=== PATIENT | male | born 2000 | race Caucasian/White ===

== ENCOUNTER 2020-09-06 14:15 | Outpatient (REF) | payer OTHER, SELFPAY ==
[2020-09-09 13:28] LABS: SARS-COV-2 PCR UMBRL Not Detected
== END 2020-09-06 14:16 | disposition home or self-care (01) ==
LOC: HO.EMPCOV 14:15
PROVIDERS: Visit Provider Internal Medicine
DX: Z20.822 Contact with and (suspected) exposure to COVID-19 (principal)
CPT/HCPCS: 36415; C9803; U0003

== ENCOUNTER 2023-12-27 08:31 | Outpatient (AMB) | payer OTHER, SELFPAY ==
--- NOTE | 2023-12-27 08:32 | A.OFFPC_ITS ---
Vital Signs 12/27/23 08:42 Height 6 ft 10 in Weight 246 lb 2 oz BMI 25.7 BP 116/86 Blood Pressure Location Rt brachial Position Sitting Respiration 12 Pulse 96 Pulse Source Pulse Oximeter Temp 98 F Temp Source Oral Pulse Oximetry (%) 98 Oxygen Delivery Method Room Air Intake Visit Reasons: Establish [facility] Intake Note: New patient visit. 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 Last seen for routine care in pediatrics. For the past 8 months has had intermittent episodes of painless bright red rectal bleeding. Generally happening with bowel movements. No large passage of blood. No history of abnormal weight loss or abdominal pain. 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 1. Little interest or pleasure in doing things: not at all 2. Feeling down, depressed, or hopeless: not at all 3. Trouble falling or staying asleep, or sleeping too much: more than half the days 4. Feeling tired or having little energy: not at all 5. Poor appetite or overeating: not at all 6. Feeling bad about yourself - or that you are a failure or have let yourself or your family down: not at all 7. Trouble concentrating on things, such as reading the newspaper or watching television: not at all 8. Moving or speaking so slowly that other people could have noticed. Or the opposite - being so fidgety or restless that you have been moving around a lot more than usual: not at all 9. Thoughts that you would be better off or of hurting yourself in some way: not at all Total score: 2 Depression Screening Interpretation: Negative (neg) Depression Screening Done: Yes 20210 - PHQ-9 Billing: Yes Source: Developed by Drs. Mukund Bustillo, Bridget Olvera, Johnathan Laird and colleagues, with an educational mary grace from [employer]. Thrive Questionnaire Date Thrive assessed: 12/27/23 I am a: Patient What is your living situation today?: I have a steady place to live Within the past 12 months, did the food you bought not last and you didn't have the money to get more?: Never true Within the past 12 months, did you worry whether your food would run out before you got money to buy more?: Never true Do you have trouble paying for medicines?: No Do you have trouble getting transportation to medical appointments?: No Do you have trouble paying your heating and electricity bill?: No Do you have trouble taking care of your child, family member or friend?: No Do you have trouble with day-to-day activities such as bathing, preparing meals, shopping, managing finances, etc.?: No Are you currently unemployed and looking for a job?: No Are you interested in more education?: No Please select the resources that you would like help with: None Currently or been in a relationship where the following occur: no concerns reported THRIVE Score: 0 AUDIT C Alcohol Use Questionnaire (AUDIT-C) 1. How often do you have a drink containing alcohol?: 2-3 times a week 2. How many drinks containing alcohol do you have on a typical day when you are drinking?: 3 or 4 3. How often do you have six or more drinks on one occasion?: Weekly Total Score: 7 DAIANA-7 AMB Questionnaire DAIANA-7 Date DAIANA - 7 assessed: 12/27/23 Feeling nervous, anxious, or on edge: 0 = Not at all Not being able to stop or control worryin = Not at all Worrying too much about different things: 0 = Not at all Trouble relaxin = Not at all Being so restless that it is hard to sit still: 0 = Not at all Becoming easily annoyed or irritable: 0 = Not at all Feeling afraid as if something awful might happen: 0 = Not at all Total DAIANA-7 score (0-4 normal; 5-9 mild; 10-14 moderate; 15-21 severe): 0 Source: Developed by Drs. Mukund Bustillo, Bridget Olvera, Johnathan Laird and colleagues, with an educational mary grace from [employer]. DAIANA-7 Assessment Billing DAIANA-7 Assessment Tool: DAIANA-7 Assessment 16496 ACT Questionnaire In the past 4 weeks, how much of the time did your asthma keep you from getting as much done at work, school or at home?: None of the time During the past 4 weeks, how often have you had shortness of breath?: Not at all During the past 4 weeks, how often did your asthma symptoms wake you up at night or earlier than usual in the morning?: Not at all During the past 4 weeks, how often have you had to use your rescue inhaler or nebulizer medication?: Not at all How would you rate your asthma control during the past 4 weeks?: Completely controlled ACT Interpretation: Negative Score: 25 Review of Systems Const Details: ROS CONSTITUTIONAL: Denies weight loss, fever and chills. HEENT: Denies changes in vision and hearing. RESPIRATORY: Denies SOB and cough. CV: Denies palpitations and CP GI: Denies abdominal pain, nausea, vomiting and diarrhea. : Denies dysuria and urinary frequency. MSK: Denies new myalgia and joint pain. SKIN: Denies rash and pruritus. NEUROLOGICAL: Denies headache PSYCHIATRIC: Denies recent changes in mood. Physical exam (Primary Care) Vital Signs: Last Vital Signs Temp 98 F 12/27/23 08:42 Pulse 96 12/27/23 08:42 Resp 12 12/27/23 08:42 BP 116/86 12/27/23 08:42 Pulse Ox 98 12/27/23 08:42 Oxygen Delivery Method Room Air 12/27/23 08:42 PHYSICAL EXAM: GENERAL: Alert and oriented x 3. NAD EYES: EOMI. Anicteric. HENT: Moist mucous membranes. No scleral icterus. No cervical lymphadenopathy. LUNGS: Clear to auscultation bilaterally. CARDIOVASCULAR: Regular rate and rhythm. No murmur. No JVD. ABDOMEN: Soft, non-tender +bs EXTREMITIES: No edema. Non-tender. SKIN: No rashes or lesions. Warm. NEUROLOGIC: No focal neurological deficits. CN II-XII grossly intact PSYCHIATRIC: Cooperative. Appropriate mood and affect BMI result Body Mass Index 25.7 Tobacco/Smoking Status: Tobacco use Status Tobacco use date assessed 12/27/23 12/27/23 08:45 Patient Tobacco Use Status Former Tobacco user 12/27/23 08:59 e-Cigarette/Vaping Use Never Used 12/27/23 08:59 PHQ-9: PHQ-9 Score PHQ-9: Total score 2 12/27/23 10:04 Depression Screening Interpretation: Negative (neg) Thrive Assessment: Date of Thrive Assessment Date Thrive assessed 12/27/23 12/27/23 09:01 Currently or been in a relationship where the following occur: no concerns reported Assessment and Plan Assessment & Plan (1) Encounter to establish care: Comment: 23 year old male to establish care. Past medical, surgical, social and family history reviewed Code(s): Z76.89 - Persons encountering health services in other specified circumstances (2) Rectal bleeding: Comment: painless intermittent brbpr-referral to general surgery Code(s): K62.5 - Hemorrhage of anus and rectum Orders: Orders Complete Blood Count Auto Diff 12/27/23 K62.5 - Hemorrhage of anus and rectum, Z13.0 - Encounter for screening for diseases of the blood and blood-forming organs and certain disorders involving the immune mechanism, Z13.220 - Encounter for screening for lipoid disorders, Z13.228 - Encounter for screening for other metabolic disorders Comprehensive Met. Panel 12/27/23 K62.5 - Hemorrhage of anus and rectum, Z13.0 - Encounter for screening for diseases of the blood and blood-forming organs and certain disorders involving the immune mechanism, Z13.220 - Encounter for screening for lipoid disorders, Z13.228 - Encounter for screening for other metabolic disorders Lipid Panel 12/27/23 K62.5 - Hemorrhage of anus and rectum, Z13.0 - Encounter for screening for diseases of the blood and blood-forming organs and certain disorders involving the immune mechanism, Z13.220 - Encounter for screening for lipoid disorders, Z13.228 - Encounter for screening for other metabolic disorders Referrals General Surgery Referral K62.5 - Hemorrhage of anus and rectum Coding Level of Care Code New Pt Level 4 (95704) Complex EM visit Add On G2211 Diagnoses Encounter to establish care Z76.89 Rectal bleeding K62.5 Additional Codes DAIANA-7 Assessment Billing - DAIANA-7 Assessment Tool: DAIANA-7 Assessment 87189 ([id number])
[2023-12-27 08:42] VITALS: BP 116/86; PULSE 96; RESP 12; TEMP 36.6; O2SAT 98; BMI 25.7
== END 2023-12-27 09:13 | disposition home or self-care (01) ==
PROVIDERS: PCP Internal Medicine; Visit Provider Internal Medicine
DX: K62.5 Hemorrhage of anus and rectum (principal)
CPT/HCPCS: 99204; G2211

== ENCOUNTER 2023-12-27 09:20 | Outpatient (REF) | payer OTHER, SELFPAY ==
[2023-12-27 11:28] LABS: MANUAL DIFF FLAG NO
[2023-12-27 11:32] LABS: Basophils Absolute Auto 0.1 X10*3/uL (0.0-0.2); Basophils Percent Auto 1.7 % (0-2); Eosinophils Absolute Auto 0.3 X10*3/uL (0.0-0.4); Eosinophils Percent Auto 4.7 % (0-4); Hematocrit 46.5 % (42.0-52.0); Hemoglobin 16.5 g/dl (14.0-18.0); Imm Gran Abs Auto 0.03 X10*3/uL (0.00-0.03); Imm Gran Pct Auto 0.5 % (0.0-0.4); Lymphocytes Absolute Auto 2.8 X10*3/uL (1.2-4.9); Lymphocytes Percent Auto 42.4 % (20-40); Mean Corpuscular HGB Conc 35.5 g/dl (31.0-36.0); Mean Corpuscular Hemoglobin 31.3 pg (27.0-33.0); Mean Corpuscular Volume 88.2 fL (80.0-98.0); Mean Platelet Volume 9.7 fL (9.4-12.4); Monocytes Absolute Auto 0.8 X10*3/uL (0.1-1.2); Monocytes Percent Auto 12.4 % (2-11); Neutrophils Absolute Auto 2.5 x10*3/uL (2.0-8.3); Neutrophils Percent Auto 38.3 % (45-73); Platelet Count 335 X10*3/uL (160-400); Red Blood Count 5.27 X10*6/uL (4.60-5.80); Red Cell Distribution Width 12.1 % (11.0-16.0); White Blood Count 6.6 X10*3/uL (4.8-10.8)
[2023-12-27 12:20] LABS: Alanine Aminotransferase 94 U/L (0-40); Albumin Level 4.4 g/dL (3.5-5.0); Alkaline Phosphatase 56 U/L (39-117); Anion Gap 13 (12-20); Aspartate Amino Transferase 47 U/L (5-37); Bilirubin Total 0.5 mg/dL (0.0-1.0); Blood Urea Nitrogen 8 mg/dL (9-16); Calcium 9.7 mg/dL (8.4-10.2); Carbon Dioxide 27 mmol/L (22-29); Chloride 104 mmol/L (96-108); Cholesterol 174 mg/dL (<200); Estimated Glomerular Filt Rate > 60; Glucose Random 89 mg/dL (60-115); HDL Cholesterol 71 mg/dL (>40); LDL Cholesterol Calculated 89 mg/dL (<100); Potassium 4.2 mmol/L (3.3-5.1); Sodium 140 mmol/L (135-145); Total Protein 7.5 g/dL (6.5-8.0); Triglycerides 71 mg/dL (<150)
== END 2023-12-27 09:21 | disposition home or self-care (01) ==
LOC: HO.WFDLDS 09:20
PROVIDERS: Visit Provider Internal Medicine
DX: K62.5 Hemorrhage of anus and rectum (principal); Z13.228 Encounter for screening for other metabolic disorders; Z13.220 Encounter for screening for lipoid disorders; Z13.0 Encounter for screening for diseases of the blood and blood-forming organs and certain disorders involving the immune mechanism
CPT/HCPCS: 36415; 80053; 80061; 85025

== ENCOUNTER 2024-01-10 13:41 | Outpatient (AMB) | payer OTHER, SELFPAY ==
--- NOTE | 2024-01-10 13:48 | MHC.OFFVIS ---
Vital Signs 01/10/24 13:49 Height 6 ft 10 in Weight 246 lb 1.985 oz BMI 25.7 Intake Visit Reasons: Hemorrhage of anus and rectum Intake Note: This patient presents for Hemorrhage of anus and rectum assessment. Patient c/o; Onset 8 months, reports rectal bleeding x2 every other month. Hook And Eye Attacher Required: No Accompanied by: Self / Same As Patient Allergies No Known Allergies Allergy (Verified 01/10/24 13:55) Medication List - Last Reconciled 01/10/24 by Mike Gibson MD No Known Home Meds HPI HPI Hemorrhage of anus and rectum: Details: 23-year-old male referred for bleeding per rectum. He says that for the past year now, he would notice small amounts of blood on the toilet bowl after a bowel movement. He says it would happen about once a month for about 2-3 days. He denies any pain with passage stool. He denies a problem with constipation. He denies abdominal pain or any other GI complaints. He actually does not have any other medical issues. 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 Current occupational exposures/hazards: No Cognitive needs: No Hearing needs: No Vision needs: No Review of Systems Const Denies chills and Denies fever(s) Card Denies chest pain, Denies dyspnea and Denies dyspnea on exertion Resp Denies cough, Denies dyspnea and Denies dyspnea on exertion GI Reports hematochezia and Denies change in bowel habits Denies hematuria and Denies difficulty urinating Musc Denies back pain and Denies limited range of motion Neuro Denies focal weakness and Denies convulsions Psych Denies depression and Denies mood swings Physical Exam Vital Signs: BMI result Body Mass Index 25.7 Const General: comfortable and no acute distress Orientation/consciousness: patient oriented x3 Neck Neck: Yes no lymphadenopathy Resp Auscultation: clear to auscultation bilaterally Cardio Rhythm: regular rhythm GI Other: Rectal exam does not show any external hemorrhoids Palpation (GI): Soft to palpation, nontender and no guarding Neuro General: patient oriented x3 Office Procedures Anoscopy He was in serena-knife position. The anoscope was gently inserted. A full examination of the anal canal was done. He did have some external hemorrhoids although non bulky. There was no bleeding. He had hypertonic sphincter but there was no fissure. There was no tenderness or induration on digital exam [id number] Assessment & Plan Assessment & Plan (1) Bleeding hemorrhoids: Code(s): K64.9 - Unspecified hemorrhoids Category: Medical Plan: He does have internal hemorrhoids on anoscopy. Although non bulky, these appeared to be the source of outlet bleeding He also had hypertonicity of his sphincters but he says that this was because he was very anxious. I do not see any anal fissure I explained to him the option of hemorrhoidectomy and we can do this was rubber banding. However, we need him to be relaxed for this so we may need to do this with an exam under anesth in the operating room. He says that this happens only once every 2 months so he would like to hold off on hemorrhoidectomy for now. I did tell him that if he noticed any significant changes including heavier bleeding, or pain, he should come back to the office to be re-evaluated Coding Level of Care Code New Pt Level 3 (35738) Diagnoses Bleeding hemorrhoids K64.9 CPT Codes Details - CPT: 82653-[id number] ([id number])
[2024-01-10 13:49] VITALS: BMI 25.7
== END 2024-01-10 14:18 | disposition home or self-care (01) ==
PROVIDERS: PCP Internal Medicine; Referring Provider Internal Medicine; Visit Provider Surgery
DX: K64.9 Unspecified hemorrhoids (principal)
CPT/HCPCS: 46600; 99203

== ENCOUNTER → 2024-01-10 13:41 | Outpatient (BNVA) | payer OTHER, SELFPAY | PROVIDERS: PCP Internal Medicine; Referring Provider Internal Medicine; Visit Provider Surgery | DX: K64.4 Residual hemorrhoidal skin tags (principal) | CPT/HCPCS: 46600 ==

== ENCOUNTER 2024-03-28 07:26 | Day surgery (SDC) | payer OTHER, SELFPAY ==
[2024-03-26 14:13] VITALS: BMI 25.7
[2024-03-28] VITALS (7 sets, daily range): BP systolic 130–139; BP diastolic 91–99; PULSE 90–97; RESP 14–18; TEMP 36.5–36.9; O2SAT 94–99; BMI 25.6
[2024-03-28] MEDS: Albuterol Sulfate (0.083%) 2.5 MG/3 ML VIAL.NEB INHALE (08:26)
--- NOTE | 2024-03-28 08:34 | HO.ANESPROP2 ---
HPI - Anesthesia Eval Consult details Narrative: for hemorrhoidectomy PMFSH Active Problems Active Problems: All Active Problems Elevated LFTs (Acute) Abnormal CBC (Acute) Screening, deficiency anemia, iron (Acute) Screening for hyperlipidemia (Acute) Screening for metabolic disorder (Acute) Rectal bleeding (Acute) Encounter to establish care (Acute) Bleeding hemorrhoids (Acute) Past Medical History Medical History (Updated 03/28/24 @ 07:59 by Wendie Duckworth RN) Autism Asthma Bleeding hemorrhoids Family History Family History Father Alcoholism Mother Skin cancer Other Substance abuse Family history of problems with anesthesia: No Surgical History Surgical History (Updated 03/28/24 @ 07:55 by Wendie Duckworth RN) History of dental surgery No pertinent past surgical history History of Problems with Anesthesia: No Social History Social History Housing: House Patient Tobacco Use Status: Never used Tobacco Cigarettes Per Day: 1 Years Smoked: 2 e-Cigarette/Vaping Use: Never Used Second Hand Smoke Exposure: Yes Use of substances other than those prescribed or required for medical reasons: Yes Substance Use Type: Marijuana Substance Use Frequency: Weekly Are you DNR?: No Advance Directives: No Advance Directives Information Provided: Yes service: No Current occupational status: employed 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 Current occupational exposures/hazards: No Cognitive needs: No Hearing needs: No Vision needs: No Meds Allergies Allergy/AdvReac Type Severity Reaction Status Date / Time No Known Allergies Allergy Verified 03/28/24 07:58 Home Medications ?Medication ?Instructions ?Recorded ?Confirmed ?Last Taken ?Type No Known Home Meds 12/27/23 03/28/24 Unknown History Exam Height,Weight and Vital Signs: Height 6 ft 10 in Weight 111.13 kg Last Vital Signs Temp 98.5 F 03/28/24 08:00 Pulse 90 03/28/24 08:29 Resp 14 03/28/24 08:29 BP 136/93 H 03/28/24 08:00 Pulse Ox 95 03/28/24 08:00 O2 Del Method Room Air 03/28/24 08:00 Airway Mallampati Class: I TM Dist: >3cm Neck ROM: Full Loose/Missing/Broken Teeth: No Heart: ok Lungs: ok Assessment and Plan Assessment Anesthesia Assessment: Anesthesia Plan Discussed and Chart Reviewed Final Anesthetic Review Family History of Problems with Anesthesia: No History of Problems with Anesthesia: No NPO: Yes ASA Class: II Final Preanesthetic Review: No Changes in Pt Med Stat, Meds/Allgs Chart Reviewed, Consent Obtained/Reviewed and Anes Risks/Benef Reviewed Patient Risk: Intermediate Procedure Risk: Intermediate Anesthetic Plan Anesthetic Plan: GA and Agree w/ Assess. and Plan Disposition: Standard PACU
--- NOTE | 2024-03-28 08:46 | MHC.SHP ---
Pre-Procedural Eval Section A - 24 Hr Update-Section A only Date of Service: 03/28/24 Section B - Complete if H&P > 30 days Chief Complaint: Unspecified hemorrhoids Details of Present Illness: Passage of bright blood per rectum hemorrhoids Allergies: Allergies Allergy/AdvReac Type Severity Reaction Status Date / Time No Known Allergies Allergy Verified 03/28/24 07:58 Review of Systems Sugical H&P ROS: Negative: Constitution, Cardiovascular, Respiratory, Neurological, Psychiatric, Hem-Onc, Allergic/Immunologic, Gastrointestinal, Genitourinary, Musculoskeletal, Integumentary, Endocrine and Eyes/Ears/Nose/Throat Exam Surgical H&P Exam: Normal: HEENT, Normal: Heart, Normal: Lungs, Normal: Extremities, Normal: Abdomen, Normal: Skin and Normal: Neurological Plan Diagnosis/Plan: Unchanged I have reviewed the history and physical and performed a pertinent physical examination on my patient. No changes have occurred unless specified. Time Spent With Patient Time: Total time managing care of this patient today ____ minutes.
[2024-03-28] MEDS: Lactated Ringers 1,000 ML 80 ML IVCONT (09:00)
--- NOTE | 2024-03-28 10:29 | P.OP_ITS ---
Operative Note Operative Note Date of Service: 03/28/24 Narrative: Preop Diagnosis: Bleeding hemorrhoids Postop diagnosis: Bleeding hemorrhoids, internal external Procedure: EUA, hemorrhoidectomy x2 columns Surgeon: Mike Gibson MD The patient is a 23-year-old male who has had periodic passage of bright blood per rectum. It did appear that he had hemorrhoids and this was the likely source of his outlet bleeding. He wanted to proceed with hemorrhoidectomy. He understood the technique of the planned procedure as well as the risks, benefits, and alternatives He was brought to the operating room and placed in prone serena-knife position under general anesthesia via laryngeal mask airway. Buttocks were retracted with wide tape laterally. The perianal area was prepped and draped in the usual sterile fashion. A surgical time-out was done. The patient received Cefotan 2 g IV preoperatively Examination of the perianal area revealed external hemorrhoids on both the left and right side. I infiltrated the perianal area with lidocaine 1%. I inserted the Justin Gupta retractor. I examined the anal canal circumferentially. Again, there was note of prominent columns of internal external hemorrhoids on both the left and right side. There were no other lesions seen. There was no fissure, ulceration or any induration. I applied a Rosario grasper at the larger column on the right to retract this out of the field. I made a [id number]-[id number] stitch at the pedicle with a chromic 3-0. I made an incision around this hemorrhoidal column to the perianal skin with a blade 15. I excised this hemorrhoidal column above the plane of the sphincters along this incision with scissors. I closed the incision with a running chromic 3-0 stitch with additional hemostatic sutures placed I repeated the procedure with the hemorrhoidal column on the left. I retracted this hemorrhoidal column with a Rosario grasper. I made a [id number]-wv-mzqxp stitch at the pedicle. I made an incision around this hemorrhoidal column to the perianal skin and excise this above the plane of the sphincters using scissors. I closed this incision with a running chromic 3-0 stitch. Additional eskcyi-ck-kdjpj chromic sutures were placed with chromic 3-0 Once hemostasis was confirmed, I proceeded to infiltrate the perianal area with Marcaine 0.5% for postop analgesia. The procedure was then completed The patient tolerated the procedure well. There were no immediate compli cations. Initial and final counts of sponges and instruments were correct. Estimated blood loss was about 50 cc The patient was extubated without difficulty and transferred to the recovery with stable vital signs.
[2024-03-28] MEDS: Acetaminophen 325 MG TABLET 650 MG PO (10:45)
[2024-03-28] MEDS: oxyCODONE HCl Immed Release 5 MG TABLET PO (10:50)
== END 2024-03-28 11:35 | disposition home or self-care (01) ==
PROVIDERS: PCP Internal Medicine; Visit Provider Surgery
PROC: (CPT 46260; principal; 2024-03-28 09:40)
DX: K64.8 Other hemorrhoids (principal); K64.4 Residual hemorrhoidal skin tags; J45.909 Unspecified asthma, uncomplicated; F84.0 Autistic disorder; Z87.891 Personal history of nicotine dependence
CPT/HCPCS: 46260; 88304; 94640; J1885; J2250; J2405; J2704; J2795; J3010

== ENCOUNTER → 2024-03-28 07:26 | Outpatient (BNV) | payer OTHER, SELFPAY | PROVIDERS: PCP Internal Medicine; Visit Provider Surgery | DX: K64.8 Other hemorrhoids (principal) | CPT/HCPCS: 46260 ==

== ENCOUNTER 2025-01-01 15:07 | Outpatient (AMB) | payer OTHER, SELFPAY ==
--- NOTE | 2025-01-01 15:10 | MHC.PC.OV ---
Vital Signs 01/01/25 15:14 01/01/25 15:36 01/01/25 15:42 Height 6 ft 10 in Weight 266 lb 4 oz BMI 27.8 BP 122/96 H 120/88 Blood Pressure Location Lt brachial Position Sitting Pulse 106 H 92 Pulse Source Pulse Oximeter Temp 96.6 F L Temp Source Temporal Artery Scan Pulse Oximetry (%) 96 Oxygen Delivery Method Room Air Intake Visit Reasons: CPE Intake Note: Stephen presents in the office today for his annual physical. Allergies No Known Allergies Allergy (Verified 01/01/25 15:13) Tobacco use date assessed: 01/01/25 Dental Screening Dental Screen Date: 01/01/25 Did you have a dental visit in the last 12 months?: No Did you have a dental problem in the last 6 months where you did not have access to dental care?: No Was dental information given to patient?: Patient has dentist HPI HPI Comments History of Present Illness Details This is a 24-year-old male who presents for a physical exam. Patient endorses bloating, frequent stools, appetite loss and vomiting once a week. Stools are sometimes formed, sometimes constipation and sometimes diarrhea. Patient says he has a healthy diet. He drinks 5-6 beers 3 nights per week. He smokes marijuana and does edibles nightly. Denies weight loss, blood in stools, abdominal pain. Endorses acid reflux sometimes. Denies family history of cancer or gastrointestinal disorders. Does not drink caffeine. He eats a lot of fruits and vegetables. He has asthma. He has had symptoms with exercise, and lately he feels like he can not get a full breath in when he takes a deep breath or coughs when he is talking. He does not have an inhaler. No wheezing, chest pain, shortness of breath, dizziness or syncope. Does not smoke cigarettes. Lives with his mother. His father from alcoholism last June. He has some difficult moments but denies feeling depressed or needing additional support or behavioral health referral. The patient's blood pressure and heart rate were initially elevated, but as it turns out he was feeling sick and vomited in the bathroom. After that he felt much better, and his vitals improved. ROS: Constitutional: No unexplained weight loss, fever, chills, fatigue or night sweats. Eyes: No vision changes, blurry vision, double vision, eye pain, eye redness, eye discharge. ENT: No hearing loss, sneezing, congestion, runny nose or sore throat. Respiratory: No sputum production, wheezing, dyspnea with exertion, hemoptysis. Cardiovascular: No chest pain, chest pressure or chest discomfort. No palpitations or pedal edema. Gastrointestinal: See HPI Genitourinary: No dysuria, hematuria, urinary frequency. Neurologic: No headache, dizziness, syncope, unilateral weakness, ataxia, numbness or tingling in the extremities. Musculoskeletal: No muscle pain, back pain, joint pain or swelling. Hematologic/Lymphatics: No bleeding or bruising. No painful lymph nodes. Skin: No rash or itching. Endocrine: No cold or heat intolerance. No polyuria or polydipsia. Psychiatric: See HPI and PHQ-9. Physical exam: Constitutional: Alert, in no distress. Head: Normocephalic. Eyes: Pupils are equal, round and reactive to light. Extraocular muscles intact. Ear, Nose and Throat: Canals clear. TMs normal. Normal nasal mucosa. No nasal discharge. No oral lesions. Neck: Supple, Full range of motion. No lymphadenopathy. No palpable thyroid masses. Respiratory: Clear to auscultation. Cardiovascular: S1 S2 regular. No murmurs. Gastrointestinal: Abdomen soft, non-tender, non-distended. Normal bowel sounds. No palpable masses. Genitourinary: Patient declined. Neurologic: No focal neurological deficits. Symmetric patellar reflexes. Moves all extremities spontaneously. Sensation intact bilaterally. Skin: No rashes or lesions. Musculoskeletal: No gross deformities. Normal range of motion. Extremities: Warm and well perfused. No clubbing, cyanosis or edema. Intact peripheral pulses bilaterally. Psychiatric: Normal mood and affect [facility] Medical History (Updated 01/02/25 @ 15:44 by PIETER Arguelles) Routine physical examination Vomiting Acid reflux Alternating constipation and diarrhea Bloating Autism Asthma Bleeding hemorrhoids Surgical History (Updated 04/08/24 @ 10:50 by LEANA Kenyon) History of hemorrhoidectomy (~03/28/24) History of dental surgery No pertinent past surgical history Family History Father Alcoholism Mother Skin cancer Other Substance abuse Social History (Updated 01/01/25 @ 15:14 by Jessica Verde MA) Housing: House Alcohol intake: current Alcohol intake frequency: a few times a week Patient Tobacco Use Status: Former Tobacco user Tobacco use type: Cigarette Cigarette Packs Per Day: 1 Cigarettes Per Day: 1 Years Smoked: 2 e-Cigarette/Vaping Use: Never Used Second Hand Smoke Exposure: Yes Substance Use Type: Marijuana service: No Current occupational status: employed 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 1. Little interest or pleasure in doing things: not at all 2. Feeling down, depressed, or hopeless: not at all 3. Trouble falling or staying asleep, or sleeping too much: more than half the days 4. Feeling tired or having little energy: more than half the days 5. Poor appetite or overeating: more than half the days 6. Feeling bad about yourself - or that you are a failure or have let yourself or your family down: not at all 7. Trouble concentrating on things, such as reading the newspaper or watching television: not at all 8. Moving or speaking so slowly that other people could have noticed. Or the opposite - being so fidgety or restless that you have been moving around a lot more than usual: not at all 9. Thoughts that you would be better off or of hurting yourself in some way: not at all Total score: 6 Depression Screening Interpretation: Negative Depression Screening Done: Yes 24482 - PHQ-9 Billing: Patient declined-do not bill Source: Developed by Drs. Mukund Bustillo, Bridget Olvera, Johnathan Laird and colleagues, with an educational mary grace from [employer]. Thrive Questionnaire Date Thrive assessed: 01/01/25 I am a: Patient What is your living situation today?: I have a steady place to live Within the past 12 months, did the food you bought not last and you didn't have the money to get more?: Never true Within the past 12 months, did you worry whether your food would run out before you got money to buy more?: Never true Do you have trouble paying for medicines?: No Do you have trouble getting transportation to medical appointments?: No Do you have trouble paying your heating and electricity bill?: No Do you have trouble taking care of your child, family member or friend?: No Do you have trouble with day-to-day activities such as bathing, preparing meals, shopping, managing finances, etc.?: No Are you currently unemployed and looking for a job?: No Are you interested in more education?: No Please select the resources that you would like help with: None Currently or been in a relationship where the following occur: No concerns reported THRIVE Score: 0 AUDIT C Alcohol Use Questionnaire (AUDIT-C) 1. How often do you have a drink containing alcohol?: 2-3 times a week 2. How many drinks containing alcohol do you have on a typical day when you are drinking?: 3 or 4 3. How often do you have six or more drinks on one occasion?: Weekly Total Score: 7 Score Reviewed/Action Taken: Yes DAIANA-7 AMB Questionnaire DAIANA-7 Date DAIANA - 7 assessed: 01/01/25 Feeling nervous, anxious, or on edge: 0 = Not at all Not being able to stop or control worryin = Not at all Worrying too much about different things: 0 = Not at all Trouble relaxin = Not at all Being so restless that it is hard to sit still: 0 = Not at all Becoming easily annoyed or irritable: 0 = Not at all Feeling afraid as if something awful might happen: 0 = Not at all Total DAIANA-7 score (0-4 normal; 5-9 mild; 10-14 moderate; 15-21 severe): 0 Source: Developed by Drs. Mukund Bustillo, Bridget Olvera, Johnathan Laird and colleagues, with an educational mary grace from [employer]. DAIANA-7 Assessment Billing DAIANA-7 Assessment Tool: DAIANA-7 Assessment 00838 Physical exam (Primary Care) Vital Signs: Last Vital Signs Temp 96.6 F L 01/01/25 15:14 Pulse 92 01/01/25 15:36 BP 120/88 01/01/25 15:42 Pulse Ox 96 01/01/25 15:14 Oxygen Delivery Method Room Air 01/01/25 15:14 BMI result Body Mass Index 27.8 Tobacco/Smoking Status: Tobacco use Status Tobacco use date assessed 01/01/25 01/01/25 15:18 Patient Tobacco Use Status Former Tobacco user 01/01/25 15:18 Tobacco use type Cigarette 01/01/25 15:18 e-Cigarette/Vaping Use Never Used 01/01/25 15:14 PHQ-9: PHQ-9 Score PHQ-9: Total score 6 01/01/25 17:39 Depression Screening Interpretation: Negative Thrive Assessment: Date of Thrive Assessment Date Thrive assessed 01/01/25 01/01/25 15:12 Currently or been in a relationship where the following occur: No concerns reported Coding Level of Care Code Est Pt Level 3 (89112) Est Pt Prev Care 18-39y(96072) Diagnoses Mild intermittent asthma without complication J45.20 Asthma severity: mild Asthma persistence: intermittent Asthma complication type: uncomplicated Gastroesophageal reflux disease without esophagitis K21.9 Esophagitis presence: without esophagitis Nausea and vomiting, unspecified vomiting type R11.2 Vomiting type: unspecified Nausea presence: with nausea Alternating constipation and diarrhea R19.8 Bloating R14.0 Routine physical examination Z00.00 Additional Codes DAIANA-7 Assessment Billing - DAIANA-7 Assessment Tool: DAIANA-7 Assessment 82620 ([id number]) Assessment & Plan Assessment & Plan (1) Asthma: Code(s): J45.909 - Unspecified asthma, uncomplicated Category: Medical Qualifiers: Asthma severity: mild Asthma persistence: intermittent Asthma complication type: uncomplicated Qualified Code(s): J45.20 - Mild intermittent asthma, uncomplicated (2) Acid reflux: Code(s): K21.9 - Gastro-esophageal reflux disease without esophagitis Category: Medical Qualifiers: Esophagitis presence: without esophagitis Qualified Code(s): K21.9 - Gastro-esophageal reflux disease without esophagitis (3) Vomiting: Code(s): R11.10 - Vomiting, unspecified Category: Medical Qualifiers: Vomiting type: unspecified Nausea presence: with nausea Qualified Code(s): R11.2 - Nausea with vomiting, unspecified (4) Alternating constipation and diarrhea: Code(s): R19.8 - Other specified symptoms and signs involving the digestive system and abdomen Category: Medical (5) Bloating: Code(s): R14.0 - Abdominal distension (gaseous) Category: Medical (6) Routine physical examination: Code(s): Z00.00 - Encounter for general adult medical examination without abnormal findings Category: Medical Plan Patient is seen today for a routine physical. As part of this visit we reviewed the following issues, which are considered and essential part of preventative health in this age group: - Testicular cancer screening, which includes self exam teaching - Blood pressure screening annually - Cholesterol screening - Nutritional and exercise counseling - Counseling of injury prevention including fire prevention, smoke alarms and seat belt usage - Screening for depression - Prevention of and/or testing for infectious diseases - Education about skin cancer - Recommendations about immunizations - Recommendation of an eye exam - Screening for substance abuse Patient will have lab evaluation for GI symptoms, Gastroenterology referral and abdominal ultrasound. We will consider trial of PPI once H pylori testing is done. I also recommended he try a dairy free diet for the next 4 weeks and decrease marijuana and alcohol use is I think they are likely contributing to his symptoms. He understands. Prescribed albuterol 2 puffs every 4 hours as needed. Monitor symptom burden. Complete chest x-ray and pulmonary function test. Follow up in 6 weeks. Orders: Orders TSH reflex Free T4 01/01/25 K21.9 - Gastro-esophageal reflux disease without esophagitis, R14.0 - Abdominal distension (gaseous), R19.8 - Other specified symptoms and signs involving the digestive system and abdomen Lipase 01/01/25 K21.9 - Gastro-esophageal reflux disease without esophagitis, R14.0 - Abdominal distension (gaseous), R19.8 - Other specified symptoms and signs involving the digestive system and abdomen Amylase 01/01/25 K21.9 - Gastro-esophageal reflux disease without esophagitis, R14.0 - Abdominal distension (gaseous), R19.8 - Other specified symptoms and signs involving the digestive system and abdomen Endomysial IgA rflx Titer 01/01/25 K21.9 - Gastro-esophageal reflux disease without esophagitis, R14.0 - Abdominal distension (gaseous), R19.8 - Other specified symptoms and signs involving the digestive system and abdomen XR chest 2V 01/01/25 J45.909 - Unspecified asthma, uncomplicated PFT pulmonary function test 01/01/25 J45.909 - Unspecified asthma, uncomplicated Comprehensive Met. Panel 01/01/25 K21.9 - Gastro-esophageal reflux disease without esophagitis, R14.0 - Abdominal distension (gaseous), R19.8 - Other specified symptoms and signs involving the digestive system and abdomen Complete Blood Count Auto Diff 01/01/25 K21.9 - Gastro-esophageal reflux disease without esophagitis, R14.0 - Abdominal distension (gaseous), R19.8 - Other specified symptoms and signs involving the digestive system and abdomen H pylori Ag Stool 01/01/25 K21.9 - Gastro-esophageal reflux disease without esophagitis, R14.0 - Abdominal distension (gaseous), R19.8 - Other specified symptoms and signs involving the digestive system and abdomen Immunoglobulin A 01/01/25 K21.9 - Gastro-esophageal reflux disease without esophagitis, R14.0 - Abdominal distension (gaseous), R19.8 - Other specified symptoms and signs involving the digestive system and abdomen Transglutaminase Ab IgG 01/01/25 K21.9 - Gastro-esophageal reflux disease without esophagitis, R14.0 - Abdominal distension (gaseous), R19.8 - Other specified symptoms and signs involving the digestive system and abdomen US abdomen complete 01/01/25 K21.9 - Gastro-esophageal reflux disease without esophagitis, R11.10 - Vomiting, unspecified, R14.0 - Abdominal distension (gaseous) Referrals Gastroenterology Referral K21.9 - Gastro-esophageal reflux disease without esophagitis, R11.10 - Vomiting, unspecified, R14.0 - Abdominal distension (gaseous), R19.8 - Other specified symptoms and signs involving the digestive system and abdomen Medications: New albuterol sulfate 90 mcg/actuation 2 inhalations inhalation .every 4 hours PRN 8.5 grams 0RF shortness of breath or wheezing 30 days Patient Instructions: Try dairy free diet Please have labs and chest x-ray completed. Decrease MJ and alcohol. We will call to schedule a pulmonary function test, ultrasound of the abdomen and a gastroenterology appointment.
[2025-01-01 15:14] VITALS: BP 122/96; PULSE 106; TEMP 35.9; O2SAT 96; BMI 27.8
[2025-01-01 15:36] VITALS: PULSE 92
--- OUTSIDE RECORDS SUMMARY | 2025-01-01 15:41 | XMS_ITS | Encounter Summary ---
Author Organization [facility] Address [address] [place] [address] Phone Care Team Providers Care Poacher Wringer Operator Name Role Phone Felicia Loco MD Primary Care Provider Encounter Details Date Type Department Care Team (Late st Contact Info) Description 08/09/2011 Documentation EM Family Medicine [address] [place] [address] Family Medicine, Physician [address] [place], [place] [phone] Social History Tobacco Use Types Packs/Day Years Used Date Smoking Tobacco: Never Assessed Sex and Gender Information Value Date Recorded Sex Assigned at Not on file Legal Sex Male 5:06 PM EDT Gender Identity Not on file Sexual Orientation Not on file documented as of this encounter Plan of Treatment Not on file documented as of this encounter Visit Diagnoses Not on filedocumented in this encounter Care Teams Poacher Wringer Operator Relationship Specialty Start Date End Date Felicia Loco MD [address] [place] [address] [place] [address] PCP - General Pediatrics 06/24/19 12/04/22 documented as of this encounter
--- OUTSIDE RECORDS SUMMARY | 2025-01-01 15:41 | XMS_ITS | Encounter Summary ---
Author Organization [facility] Address [address] [place] [address] Phone Care Team Providers Care Carpet Inspector Name Role Phone Felicia Loco MD Primary Care Provider [phone] Encounter Details Date Type Department Care Team (Late st Contact Info) Description 09/07/2011 Documentation EM Family Medicine [address] [place] [address] Family Medicine, Physician [address] [place], [place] [phone] Social History Tobacco Use Types Packs/Day Years [...] on filedocumented in this encounter Care Teams Carpet Inspector Relationship Specialty Start Date End Date Felicia Loco MD [address] [place] [address] [place] [address] PCP - General Pediatrics 06/24/19 12/04/22 documented as of this encounter
--- OUTSIDE RECORDS SUMMARY | 2025-01-01 15:41 | XMS_ITS | Encounter Summary ---
Author Organization [facility] Address [address] [place] [address] Phone Care Team Providers Care Associate Professor Of Education Name Role Phone Felicia Loco MD Primary Care Provider [phone] Encounter Details Date Type Department Care Team (Late st Contact Info) Description 08/17/2011 Documentation EM Family Medicine [address] [place] [address] Family Medicine, Physician [address] [place], [place] [phone] Social History Tobacco Use Types Packs/Day Years [...] on filedocumented in this encounter Care Teams Associate Professor Of Education Relationship Specialty Start Date End Date Felicia Loco MD [address] [place] [address] [place] [address] PCP - General Pediatrics 06/24/19 12/04/22 documented as of this encounter
--- OUTSIDE RECORDS SUMMARY | 2025-01-01 15:41 | XMS_ITS | Encounter Summary ---
Author Organization [facility] Address [address] [place] [address] Phone Care Team Providers Care Tacking Machine Operator Name Role Phone Felicia Loco MD Primary Care Provider [phone] Encounter Details Date Type Department Care Team (Late st Contact Info) Description 04/10/2017 Documentation EM Family Medicine [address] [place] [address] Family Medicine, Physician [address] [place], [place] [phone] Social History Tobacco Use Types Packs/Day Years Used Date Smoking Tobacco: Never Comments:Never smoker Sex and Gender Information Value Date Recorded Sex Assigned at Not on file Legal Sex Male 5:06 PM EDT Gender Identity Not on file Sexual Orientation Not on file documented as of this encounter Plan of Treatment Not on file documented as of this encounter Visit Diagnoses Not on filedocumented in this encounter Care Teams Tacking Machine Operator Relationship Specialty Start Date End Date Felicia Loco MD [address] [place] [address] [place]A [place] [address] PCP - General Pediatrics 06/24/19 12/04/22 documented as of this encounter
--- OUTSIDE RECORDS SUMMARY | 2025-01-01 15:41 | XMS_ITS | Encounter Summary ---
Author Organization [facility] Address [address] [place] [address] Phone Care Team Providers Care Travel Agency Manager Name Role Phone Felicia Loco MD Primary Care Provider [phone] Encounter Details Date Type Department Care Team (Latest Contact Info) Description 03/07/2020 ED [facility] Social History Tobacco Use Types Packs/Day Years Used Date Smoking Tobacco: Never Smokeless Tobacco: Never Comments:Never smoker Alcohol Use Standard Drinks/Week Comments Yes 0 (1 standard drink = 0.6 oz pure alcohol) drinks once or twice a month with friends. Hunger/Food Answer Date Recorded No 04/17/2019 Stable Housing Answer Date Recorded No 08/30/2019 Transportation Concerns Answer Date Rec orded No 04/17/2019 Hazards in Home Answer Date Recorded No 04/17/2019 Financing Utilities Answer Date Recorde d No 04/17/2019 Safety at Home Answer Date Recorded No 04/17/2019 Outside Support Answer Date Recorded No 04/17/2019 Understanding Health Concerns Answer Da te Recorded No 04/17/2019 Financing Health Concerns Answer Date R ecorded No 04/17/2019 Missing School or Work Answer Date Herman rded No 04/17/2019 Sex and Gender Information Value Date Recorded Sex Assigned at Not on file Legal Sex Male 5:06 PM EDT Gender Identity Not on file Sexual Orientation Not on file documented as of this encounter ED Notes * [facility], [facility] - 03/07/2020 9:12 AM EDT EDPDOC [facility] EDM *LIVE* ED Physician Documentation Summary Report Patient: LEXX VELÁSQUEZ 19/M Service Date: 03/07/20 Account: [id number] : 2000 Service Time: 911 PCP: MAXI MR#: [id number] COVID-19 Visit/Exposure Info Visit Information Visit Type: In-person, PPE utilized Chief Complaint: Generic Triage Time Seen by MD: 09:23 Source: patient Exam Limitations: no limitations Patient Exposure Patient concern for COVID-19?: No Exposure to COVID-19?: Yes Where did exposure occur?: Work Has patient been tested?: No If prev test, what was result?: N/A Other person symptomatic?: No Other person COVID-19 tested?: Yes Recent illness?: No Recent Hospitalization?: No History of Present Illness HPI Patient is an otherwise healthy 19-year-old male presents to the emergency room requesting SARS-CoV-2 testing as a result I have a positive exposure which happened 10 days ago. Patient requires testing as a result of a work requirement. He is asymptomatic. No risk factors. Review of Systems (Structured) Constitutional: Denies: Chills, Diaphoresis, Fever, Loss of Appetite, Malaise, Weakness Eyes: Denies: Discharge, Redness, Other ENT: Denies: Change in Smell, Change in Taste, Nasal Congestion, Rhinorrhea, Sore Throat, Other Cardiovascular: Denies: Chest Pain, Palpitations, Syncope, Other Respiratory: Denies: Cough, Shortness of Breath, Wheezing, Other Gastrointestinal: Denies: Abdominal Pain, Diarrhea, Nausea, Vomitting, Other Neurological: Denies: Headache, Other Exam (Structured) Constitutional: Reports: Calm, Cooperative, Well-Appearing Skin: Reports: Dry; Denies: Diaphoresis, Rash Eyes: Reports: Clear; Denies: Discharge ENT: Denies: Nasal Congestion, Nasal Discharge, Pharyngeal Erythema Respiratory: Reports: Clear, Non-Labored; Denies: Accessory Muscle Use Cardiovascular: Reports: Regular Rate, Regular Rhythm Abdominal: Reports: Non-Tender, Soft Neurological: Reports: Alert, No Focal Deficits, Oriented COVID-19 PMHx Medical History Allergies Reviewed: Yes Past Medical History: No Significant PMH Social History Smoking Status: Never Smoker Alcohol Use: Denies Recreational Drug Use: Denies COVID-19 Course Differential Diagnosis/Testing Differential Diagnosis: Other (Ewen testing) Diagnostics Testing Done: COVID-19 Lab Results COVID-19 Laboratory Tests Test 03/07/20 09:22 SARS-CoV-2 RNA (RT-PCR) Pending Plan Plan: Self-Isolation, Discharge Departure Diagnosis: Ewen COVID-19 testing Disposition: HOME, SELF-CARE Condition: Good Patient Instructions: Novel Coronavirus (ED) Referrals: ARGENTINA LOCO MD (PCP) MARA DIAZ PA-C Mar 07, 2020 09:58 ED Physician: MARA DIAZ PA-C Documentation Date/Time: 03/07/2058 Cosigner: SAWYER LYNN DO Cosigner: <Electronically signed by MARA DIAZ PA-C> 03/07/202129 <Electronically signed by SAWYER LYNN DO> 03/08/20 0959 documented in this encounter Plan of Treatment Not on file documented as of this encounter Visit Diagnoses Not on filedocumented in this encounter Care Teams Travel Agency Manager Relationship Specialty Start Date End Date Felicia Loco MD [address] [place] [address] [place]JENDRA [place] [address] PCP - General Pediatrics 06/24/19 12/04/22 documented as of this encounter
--- OUTSIDE RECORDS SUMMARY | 2025-01-01 15:41 | XMS_ITS | Encounter Summary ---
Author Organization [facility] Address [address] [place] [address] Phone Care Team Providers Care Stunt Person Name Role Phone Felicia Loco MD Primary Care Provider [phone] Encounter Details Date Type Department Care Team (Late st Contact Info) Description 04/12/2017 Conversion Encounter [facility] [place] [address] [place], [place] [id number] Social History Tobacco Use Types Packs/Day Years [...] on filedocumented in this encounter Care Teams Stunt Person Relationship Specialty Start Date End Date Felicia Loco MD [address] [place] [address] PCP - General Pediatrics 06/24/19 12/04/22 documented as of this encounter
--- OUTSIDE RECORDS SUMMARY | 2025-01-01 15:41 | XMS_ITS | Encounter Summary ---
Author Organization [facility] Address [address] [place] [address] Phone Care Team Providers Care Copyist Name Role Phone Felicia Loco MD Primary Care Provider [phone] Encounter Details Date Type Department Care Team (Late st Contact Info) Description 08/23/2011 Documentation EM Family Medicine [address] [place] [address] Family Medicine, Physician [address] [place], [place] [phone] Social History Tobacco Use Types Packs/Day Years [...] on filedocumented in this encounter Care Teams Copyist Relationship Specialty Start Date End Date Felicia Loco MD [address] [place] [address] [place] [address] PCP - General Pediatrics 06/24/19 12/04/22 documented as of this encounter
[2025-01-01 15:42] VITALS: BP 120/88
--- OUTSIDE RECORDS SUMMARY | 2025-01-01 15:42 | XMS_ITS | Encounter Summary ---
Author Organization [facility] Address [address] [place] [address] Phone Care Team Providers Care Rubber Trimmer Name Role Phone Felicia Loco MD Primary Care Provider Encounter Details Date Type Department Care Team (Late st Contact Info) Description 07/20/2014 Documentation EM Family Medicine [address] [place] [address] Family Medicine, Physician [address] [place], [place] [phone] Social History Tobacco Use Types Packs/Day Years [...] on filedocumented in this encounter Care Teams Rubber Trimmer Relationship Specialty Start Date End Date Felicia Loco MD [address] [place] [address] [place] [address] PCP - General Pediatrics 06/24/19 12/04/22 documented as of this encounter
--- OUTSIDE RECORDS SUMMARY | 2025-01-01 15:42 | XMS_ITS | Clinical Summary ---
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 Immunizations Immunization Administration Dates Next Due DTaP 5 01/09/2005, 1,05/24/2000,03/29,01/20/2000 HPV, Quadrivalent 12/08/2014,06/12/2014,04/10/20 14 Hep A, ped/adol 12/08/2014,04/10/2014 Hep B, ped/adol 09/14/2000,01/20/2000,1999 Hib (PRP-T) 03/19/2001, 0,03/29/2000,01/19 IPV 01/09/2005, 1,03/29/2000,01/19 Influenza, injectable, quadrivalent 12/15/2015,1 09/13/2013 Influenza, injectable, quadr ivalent, preservative free 10/21/2020,06/09/2019,04/24/2016 Influenza, injectable, trivalent 06/02/2009 MMR 01/09/2005,11/16/2000 Meningococcal B Trumenba 10/21/2020,04/17/2019 Meningococcal Conj (Menactra) MCV4P 04/09/2017,0 12/26/2010 Pneumococcal Conjugate 03/19/2001,2000,05/24/2000,03/29 Tdap 10/21/2020,12/26/2010 Varicella 11/16/2000 Family History Medical History Relation Name Comments No Known Problems Brother Zeferino No Known Problems Father No Known Problems Half-Sister No Known Problems Mother Jose Relation Name Status Comments Brother Zeferino Alive Brother: Alive and well Father Alive Father: Alive a nd well Half-Sister Alive Half sister (P) : Alive and well Mother Jose Alive Mother: Alive a nd well Other Family history of Allergies, Family history of Eczema Social History Tobacco Use Types Packs/Day Years Used Date Smoking Tobacco: Never Smokeless Tobacco: Never Comments:Never smoker Alcohol Use Standard Drinks/Week Comments Yes 0 (1 standard drink = 0.6 oz pure alcohol) drinks once or twice a month with friends. Hunger/Food Answer Date Recorded In the last 12 months, did y ou or your family ever eat less than you felt you should because there wasn't enough money for food? No 10/21/2020 Stable Housing Answer Date Recorded Are you worried that in the next 2 months you may not have stable housing? No 10/21/2020 Transportation Concerns Answer Date Rec orded In the last 12 months, have you or your family ever had to go without healthcare because you didn't have a way to get there? No 10/21/2020 Hazards in Home Answer Date Recorded Think about the place you li ve. Do you have problems with any of the following? Pests (mice or roaches), mold, no/not working smoke detectors, water leaks, no window guards. No 2020 Financing Utilities Answer Date Recorde d In the last 12 months, has t he electric, gas, oil, or water company threatened to shut off your services in your home? No 10/21/2020 Safety at Home Answer Date Recorded Are you or your family worried about feeling saf e in your home? No 10/21/2020 Outside Support Answer Date Recorded Do you feel that you need mo re support from other people or programs to help you care for yourself or your family? No 10/21/2020 Understanding Health Concerns Answer Da te Recorded Do you need help understandi ng your or your child's healthcare needs (diagnosis, medications, plan, etc.)? No 10/21/2020 Financing Health Concerns Answer Date R ecorded In the last 12 months, was t here a time when your child needed to see a doctor or get medications or supplies but could not because of cost? No 10/21/2020 Missing School or Work Answer Date Herman rded Did you or your child miss s chool or work because of a health problem that could have been avoided? No 10/21/2020 Sex and Gender Information Value Date Recorded Sex Assigned at Not on file Legal Sex Male 5:06 PM EDT Gender Identity Not on file Sexual Orientation Not on file Last Filed Vital Signs Vital Sign Reading Time Taken Comments Blood Pressure 114/79 10/21/2020 9:14 AM EST Pulse 88 10/21/2020 9:14 AM EST Temperature 36.2 ??C (97.1 ??F) 10/21/2020 9:14 AM ES T Respiratory Rate 20 06/09/2019 10:23 AM EDT Oxygen Saturation 98% 09/09/2010 12:00 AM EST Inhaled Oxygen Concentration - - Weight 84.4 kg (186 lb) 10/21/2020 9:14 AM EST Height 208.3 cm (6' 10 ) 10/21/2020 9:14 AM EST Body Mass Index 19.45 10/21/2020 9:14 AM EST Plan of Treatment Health Maintenance Due Date Last Done Comments Influenza Vaccines (#1) 2024 10/21/19, 06/09/2019, 04/24/2016, Additional history exists COVID-19 Vaccine (2023-2 5 season) 2024 09/02/2020, 08/12/2020 DTaP,Tdap,and Td Vaccines (8 - Td or Tdap) 10/21/2030 10/21/2020, 12/26/2010, 01/09/2005, Additional history exists Hepatitis B Vaccines Completed 09/14/2000, 01/20/2000, 1999 HIB Vaccines Completed 03/19/2001, 04/28, 03/29/2000, Additional history exists Pneumococcal Vaccine Completed 03/19/2001, 09/14/2000, 05/24/2000, Additional history exists IPV Vaccines Completed 01/09/2005, 02/25, 03/29/2000, Additional history exists MMR Vaccines Completed 01/09/2005, 11/16/2000 HPV Vaccines Completed 12/08/2014, 05/27, 04/10/2014 Hepatitis A Vaccines Completed 12/08/2014, 04/10/20 14 Meningococcal Vaccine Completed 04/09/2017, 011 Men B Vaccine Completed 10/21/2020, 04/17/2019 Insurance [facility] [employer]
--- OUTSIDE RECORDS SUMMARY | 2025-01-01 15:42 | XMS_ITS | Clinical Summary ---
Author Organization [facility] Address [address] [place] [address] Care Team Providers Care Supply Chain Program Manager Name Role Phone Unavailable Primary Care Provider Unavailabl e Social History Tobacco Use Types Packs/Day Years Used Date Smoking Tobacco: Never Assessed Sex and Gender Information Value Date Recorded Sex Assigned at Not on file Legal Sex Male 8:57 PM EST Gender Identity Not on file Sexual Orientation Not on file Plan of Treatment Health Maintenance Due Date Last Done Comments HPV Vaccines (1 - Male 3-dos e series) 11/14/2014 DTaP,Tdap,and Td Vaccines (1 - Tdap) 11/14/2018 Hepatitis B Vaccines (1 of 3 - 19+ 3-dose series) 11/14/2018 COVID-19 Vaccine ( - 2023-2 5 season) 2024 Influenza Vaccine (Season Ended) 2025 HIB Vaccines Aged Out No longer eligi ble based on patient's age to complete this topic Hepatitis A Vaccines Aged Out No long er eligible based on patient's age to complete this topic IPV Vaccines Aged Out No longer eligi ble based on patient's age to complete this topic MMR Vaccines Aged Out No longer eligi ble based on patient's age to complete this topic Meningococcal ACWY Vaccine Aged Out N o longer eligible based on patient's age to complete this topic Meningococcal B Vaccine Aged Out No l onger eligible based on patient's age to complete this topic Pneumococcal Vaccine: Pediat rics (0 to 5 Years) and At-Risk Patients (6 to 64 Years) Aged Out No longer eligible b ased on patient's age to complete this topic RSV Immunization Patients Un willie 20 months Aged Out No longer eligible b ased on patient's age to complete this topic Varicella Vaccines Aged Out No longer eligible based on patient's age to complete this topic
== END 2025-01-01 15:51 | disposition home or self-care (01) ==
LOC: HO.HMCFM 15:08
PROVIDERS: PCP Internal Medicine; Visit Provider Physician Assistant Medical
DX: Z00.00 Encounter for general adult medical examination without abnormal findings (principal); J45.20 Mild intermittent asthma, uncomplicated; K21.9 Gastro-esophageal reflux disease without esophagitis; R11.2 Nausea with vomiting, unspecified; R19.8 Other specified symptoms and signs involving the digestive system and abdomen; R14.0 Abdominal distension (gaseous)

== ENCOUNTER → 2025-01-01 15:07 | Outpatient (BNVA) | payer OTHER, SELFPAY | PROVIDERS: PCP Internal Medicine; Visit Provider Physician Assistant Medical | DX: Z00.00 Encounter for general adult medical examination without abnormal findings (principal); J45.20 Mild intermittent asthma, uncomplicated; K21.9 Gastro-esophageal reflux disease without esophagitis; R11.2 Nausea with vomiting, unspecified; R19.8 Other specified symptoms and signs involving the digestive system and abdomen; R14.0 Abdominal distension (gaseous) | CPT/HCPCS: 96127 ==

== ENCOUNTER 2025-02-11 14:58 | Outpatient (REF) | payer OTHER, SELFPAY ==
--- NOTE | ~2025-02-11 | XR_ITS ---
CLINICAL HISTORY: R06.02 - Shortness of breath 2 views soft tissue neck Comparison: None provided Findings No acute fractures or dislocation. Epiglottis unremarkable. Questioned fluid level in the region of the piriform sinuses and mild soft tissue edema. No radiopaque foreign body. IMPRESSION: Questioned fluid level in the region of the piriform sinuses and mild soft tissue edema. Soft tissue neck CT should be considered. This document has been electronically signed by: Casa Zacarias MD on 02/12/2025 10:12:11
--- OUTSIDE RECORDS SUMMARY | 2025-02-11 17:15 | XMS_ITS | Encounter Summary ---
Author Organization [facility] Address [address] [place] [address] Phone Care Team Providers Care Convention Services Manager Name Role Phone Felicia Loco MD Primary Care Provider [phone] Encounter Details Date Type Department Care Team (Latest Contact Info) Description 03/07/2020 ED [facility] Social History Tobacco Use Types Packs/Day Years [...] of this encounter ED Notes * DOCUMENTS, [facility] - 03/07/2020 9:12 AM EDT EDPDOC [facility] EDM *LIVE* ED Physician Documentation Summary Report Patient: LEXX VELÁSQUEZ 19/M Service Date: 03/07/20 Account: [id number] : 2000 Service Time: 911 PCP: MAXI MR#: [id number] COVID-19 Visit/Exposure Info Visit Information Visit Type: [...] COVID-19 Course Differential Diagnosis/Testing Differential Diagnosis: Other ([place] testing) Diagnostics Testing Done: COVID-19 Lab Results COVID-19 Laboratory Tests Test 03/07/20 09:22 SARS-CoV-2 RNA (RT-PCR) Pending Plan Plan: Self-Isolation, Discharge Departure Diagnosis: [place] COVID-19 testing Disposition: HOME, SELF-CARE Condition: Good [...] on filedocumented in this encounter Care Teams Convention Services Manager Relationship Specialty Start Date End Date Felicia Loco MD [address] [place] [address] RAJENDRA Marmolejo [address] PCP - General Pediatrics 06/24/19 12/04/22 documented as of this encounter
== END 2025-02-11 14:59 | disposition home or self-care (01) ==
LOC: HO.XRAY 14:58
PROVIDERS: PCP Internal Medicine; Visit Provider Internal Medicine
DX: R06.02 Shortness of breath (principal)
CPT/HCPCS: 70360

== ENCOUNTER → 2025-02-11 15:02 | Outpatient (BNV) | payer OTHER, SELFPAY | PROVIDERS: PCP Internal Medicine; Visit Provider Radiology Vascular & Interventional Radiology | DX: R06.02 Shortness of breath (principal) | CPT/HCPCS: 70360 ==

== ENCOUNTER 2025-04-06 09:08 | Outpatient (REF) | payer OTHER, SELFPAY ==
--- NOTE | ~2025-04-06 | US_ITS ---
CLINICAL HISTORY: R11.10 - Vomiting, unspecified US abdomen complete Comparison: None provided Findings: The visualized pancreas head is normal. The visualized aorta and inferior vena cava are normal caliber. The right hepatic lobe measures 20.8 cm in length and elongated. Normal in echogenicity, no discrete lesion is visualized in the imaged liver. No intrahepatic bile duct dilatation. The common duct is 3 mm in diameter. The gallbladder is normal. Negative sonographic Lucio sign. The main portal vein is patent with antegrade flow. The right kidney is normal, 12.4 cm in length. The left kidney is enlarged, 13.9 cm in length, otherwise normal. The spleen is mildly enlarged, 13.2 cm in length, no focal lesion. No free fluid in the abdomen. Impression: 1. Hepatomegaly versus Reidel lobe of the liver. 2. Mildly enlarged left kidney and spleen, please correlate with body habitus. This document has been electronically signed by: Jaquelin Johns MD on 04/06/2025 11:13:12
--- OUTSIDE RECORDS SUMMARY | 2025-04-06 09:35 | XMS_ITS | Clinical Summary ---
Author Organization [facility] it[facility] Address [address] [place] [address] Care Team Providers Care Data Developer Name Role Phone Unavailable Primary Care Provider [...] Vaccine ( - 2023-2 5 season) 2024 Depression Screening 08/27/2024 Influenza Vaccine (#1) 2025 HIB Vaccines Aged Out No longer [...] 5 Years) and At-Risk Patients (6 to 49 Years) Aged Out No longer eligible b ased on patient's age to complete this topic RSV Immunization Patients Un willie 20 months Aged Out No longer eligible b ased on patient's age to complete this topic Varicella Vaccines Aged Out No longer eligible based on patient's age to complete this topic
--- OUTSIDE RECORDS SUMMARY | 2025-04-06 09:35 | XMS_ITS | Encounter Summary ---
Author Organization [facility] Address [address] [place] [address] Phone Care Team Providers Care Bottle Filler Name Role Phone Felicia Loco MD Primary Care Provider [phone] Encounter Details Date Type Department Care Team (Latest Contact Info) Description 03/07/[address] [facility] Social History Tobacco Use Types Packs/Day Years [...] of this encounter ED Notes * DOCUMENTS, [facility] - 03/07/2020 9:[address] [facility] EDM *LIVE* ED Physician Documentation Summary Report Patient: LEXX VELÁSQUEZ 19/M Service Date: 03/07/20 Account: [id number] : 2000 Service Time: 911 PCP: MAXI MR#: [id number] COVID-19 Visit/Exposure Info Visit Information Visit Type: [...] COVID-19 Course Differential Diagnosis/Testing Differential Diagnosis: Other ([place] testing) Diagnostics Testing Done: COVID-19 Lab Results COVID-19 Laboratory Tests Test 03/07/20 09:22 SARS-CoV-2 RNA (RT-PCR) Pending Plan Plan: Self-Isolation, Discharge Departure Diagnosis: [place] COVID-19 testing Disposition: HOME, SELF-CARE Condition: Good [...] on filedocumented in this encounter Care Teams Bottle Filler Relationship Specialty Start Date End Date Felicia Loco MD [address] [place] [address] RAJENDRA Marmolejo [address] PCP - General Pediatrics 06/24/19 12/04/22 documented as of this encounter
== END 2025-04-06 09:09 | disposition home or self-care (01) ==
LOC: HO.HMGCX 09:08
PROVIDERS: PCP Internal Medicine; Visit Provider Physician Assistant Medical
DX: R14.0 Abdominal distension (gaseous) (principal); R11.10 Vomiting, unspecified; K21.9 Gastro-esophageal reflux disease without esophagitis
CPT/HCPCS: 76700

== ENCOUNTER → 2025-04-06 09:12 | Outpatient (BNV) | payer OTHER, SELFPAY | PROVIDERS: PCP Internal Medicine; Visit Provider Radiology Diagnostic Radiology | DX: N28.81 Hypertrophy of kidney (principal) | CPT/HCPCS: 76700 ==

== ENCOUNTER 2025-08-19 10:18 | Outpatient (REF) | payer OTHER, SELFPAY ==
[2025-08-19 16:10] LABS: MANUAL DIFF FLAG NO
[2025-08-19 16:15] LABS: Hematocrit 44.1 % (42.0-52.0); Hemoglobin 15.3 g/dl (14.0-18.0); Imm Gran Abs Auto 0.01 X10*3/uL (0.00-0.03); Imm Gran Pct Auto 0.2 % (0.0-0.4); Lymphocytes Absolute Auto 2.4 X10*3/uL (1.2-4.9); Mean Corpuscular HGB Conc 34.7 g/dl (31.0-36.0); Mean Corpuscular Hemoglobin 29.2 pg (27.0-33.0); Mean Corpuscular Volume 84.2 fL (80.0-98.0); NRBC Abs Auto 0.000 X10*3/uL (0.0-0.012); NRBC Pct Auto 0.0 /100WBC (0.0-0.2); Platelet Count 349 X10*3/uL (160-400); Red Blood Count 5.24 X10*6/uL (4.60-5.80); White Blood Count 5.7 X10*3/uL (4.8-10.8)
[2025-08-19 16:43] LABS: Alanine Aminotransferase 41 U/L (0-40); Albumin Level 4.7 g/dL (3.5-5.0); Alkaline Phosphatase 94 U/L (39-117); Amylase 40 U/L (28-100); Anion Gap 12 (12-20); Aspartate Amino Transferase 28 U/L (5-37); Blood Urea Nitrogen 8 mg/dL (9-16); Calcium 9.5 mg/dL (8.4-10.2); Carbon Dioxide 25 mmol/L (22-29); Chloride 108 mmol/L (96-108); Estimated Glomerular Filt Rate > 60; Lipase 29 U/L (8-78); Potassium 4.3 mmol/L (3.3-5.1); Sodium 141 mmol/L (135-145); Total Protein 7.4 g/dL (6.5-8.0)
[2025-08-21 13:03] LABS: Immunoglobulin A 240 mg/dL (47-310)
[2025-08-24 09:49] LABS: Transglutaminase Ab IgG <1.0 U/mL
== END 2025-08-19 10:19 | disposition home or self-care (01) ==
LOC: HO.WFDLDS 10:18
PROVIDERS: Physician Assistant Medical; PCP Internal Medicine; Visit Provider Internal Medicine
DX: R14.0 Abdominal distension (gaseous) (principal); R19.8 Other specified symptoms and signs involving the digestive system and abdomen; K21.9 Gastro-esophageal reflux disease without esophagitis; R79.89 Other specified abnormal findings of blood chemistry; R06.02 Shortness of breath; J45.20 Mild intermittent asthma, uncomplicated; R09.81 Nasal congestion
CPT/HCPCS: 36415; 80053; 82150; 82248; 82784; 83690; 84443; 85025; 86231; 86364; 96160

== ENCOUNTER 2025-08-19 10:18 | Outpatient (AMB) | payer OTHER, SELFPAY ==
--- OUTSIDE RECORDS SUMMARY | 2025-08-19 10:27 | XMS_ITS | Encounter Summary ---
Author Organization [facility] Address [address] [place] [address] Phone Care Team Providers Care Heel Seat Laster Name Role Phone Felicia Loco MD Primary Care Provider [phone] Encounter Details Date Type Department Care Team (Late st Contact Info) Description 08/23/2011 Documentation EM Family Medicine [address] [place] [address] Family Medicine, Physician [address] [place], [place] [phone] Social History Tobacco Use Types Packs/Day Years [...] on filedocumented in this encounter Care Teams Heel Seat Laster Relationship Specialty Start Date End Date Felicia Loco MD [address] [place] [address] [place] [address] PCP - General Pediatrics 06/24/19 12/04/22 documented as of this encounter
--- OUTSIDE RECORDS SUMMARY | 2025-08-19 10:27 | XMS_ITS | Clinical Summary ---
Author Organization [facility] ity Address [address] [place] [address] Care Team Providers Care Machine Sole Leveler Name Role Phone Unavailable Primary Care Provider [...] of 3 - 19+ 3-dose series) 11/14/2018 Depression Screening 08/27/2024 COVID-19 Vaccine (1 - 2024-2 6 season) 2025 Influenza Vaccine (#1) 2025 RSV Immunization Adult Patie nts (1 - 1-dose 75+ series) 11/14/2074 HIB Vaccines Aged Out No longer eligi [...]
--- OUTSIDE RECORDS SUMMARY | 2025-08-19 10:27 | XMS_ITS | Clinical Summary ---
Author Organization [facility] Address [address] [place] [address] Phone Care Team Providers Care College Teacher Name Role Phone Unavailable Primary Care Provider [...] 88 10/21/2020 9:14 AM EST Temperature 36.2 C (97.1 F) 10/21/2020 9:14 AM EST Respiratory Rate 20 06/09/2019 10:23 AM EDT Oxygen Saturation 98% 09/09/2010 12:00 AM EST Inhaled Oxygen Concentration - - Weight 84.4 kg (186 lb) 10/21/2020 9:14 AM EST Height 208.3 cm (6' 10 ) 10/21/2020 9:14 AM EST Body Mass Index 19.45 10/21/2020 9:14 AM EST Plan of Treatment Health Maintenance Due Date Last Done Comments Influenza Vaccines (#1) 2025 10/21/19, 06/09/2019, 04/24/2016, Additional history exists COVID-19 Vaccine (3 2024-2 6 season) 2025 09/02/2020, 08/12/2020 DTaP,Tdap,and Td Vaccines (8 - [...] B Vaccine Completed 10/21/2020, 04/17/2019 Insurance [facility] [place] [address]
--- OUTSIDE RECORDS SUMMARY | 2025-08-19 10:27 | XMS_ITS | Encounter Summary ---
Author Organization [facility] Address [address] [place] [address] Phone Care Team Providers Care Warning Analyst Name Role Phone Felicia Loco MD Primary Care Provider [phone] Encounter Details Date Type Department Care Team (Late st Contact Info) Description 07/20/2014 Documentation EM Family Medicine [address] [place] [address] Family Medicine, Physician [address] [place], [place] [phone] Social History Tobacco Use Types Packs/Day Years [...] on filedocumented in this encounter Care Teams Warning Analyst Relationship Specialty Start Date End Date Felicia Loco MD [address] [place] [address] [place] [address] PCP - General Pediatrics 06/24/19 12/04/22 documented as of this encounter
--- OUTSIDE RECORDS SUMMARY | 2025-08-19 10:27 | XMS_ITS | Encounter Summary ---
Author Organization [facility] Address [address] [place] [address] Phone Care Team Providers Care Retail Presentation Specialist Name Role Phone Felicia Loco MD Primary Care Provider [phone] Encounter Details Date Type Department Care Team (Late st Contact Info) Description 08/17/2011 Documentation EM Family Medicine [address] [place] [address] Family Medicine, Physician [address] [place], [place] [phone] Social History Tobacco Use Types Packs/Day Years [...] on filedocumented in this encounter Care Teams Retail Presentation Specialist Relationship Specialty Start Date End Date Felicia Loco MD [address] [place] [address] [place] [address] PCP - General Pediatrics 06/24/19 12/04/22 documented as of this encounter
--- OUTSIDE RECORDS SUMMARY | 2025-08-19 10:27 | XMS_ITS | Encounter Summary ---
Author Organization [facility] Address [address] [place] [address] Phone Care Team Providers Care Riffler Tender Name Role Phone Felicia Loco MD Primary Care Provider [phone] Encounter Details Date Type Department Care Team (Late st Contact Info) Description 08/09/2011 Documentation EM Family Medicine [address] [place] [address] Family Medicine, Physician [address] [place], [place] [phone] Social History Tobacco Use Types Packs/Day Years [...] on filedocumented in this encounter Care Teams Riffler Tender Relationship Specialty Start Date End Date Felicia Loco MD [address] [place] [address] [place] [address] PCP - General Pediatrics 06/24/19 12/04/22 documented as of this encounter
--- OUTSIDE RECORDS SUMMARY | 2025-08-19 10:27 | XMS_ITS | Encounter Summary ---
Author Organization [facility] Address [address] [place] [address] Phone Care Team Providers Care Supervisor Adult Education Name Role Phone Felicia Loco MD Primary Care Provider Encounter Details Date Type Department Care Team (Late st Contact Info) Description 04/10/2017 Documentation EM Family Medicine [address] [place] [address] Family Medicine, Physician [address] [place], [place] [phone] Social History Tobacco Use Types Packs/Day Years [...] on filedocumented in this encounter Care Teams Supervisor Adult Education Relationship Specialty Start Date End Date Felicia Loco MD [address] [place] [address] RAJENDRA Marmolejo [address] PCP - General Pediatrics 06/24/19 12/04/22 documented as of this encounter
--- OUTSIDE RECORDS SUMMARY | 2025-08-19 10:27 | XMS_ITS | Encounter Summary ---
Author Organization [facility] Address [address] [place] [address] Phone Care Team Providers Care Gas Prover Name Role Phone Felicia Loco MD Primary Care Provider Encounter Details Date Type Department Care Team (Late st Contact Info) Description 04/12/2017 Conversion Encounter [facility] [address] [place], [place] [phone] Social History Tobacco Use Types Packs/Day Years [...] on filedocumented in this encounter Care Teams Gas Prover Relationship Specialty Start Date End Date Felicia Loco MD [address] [place] [address] PCP - General Pediatrics 06/24/19 12/04/22 documented as of this encounter
--- OUTSIDE RECORDS SUMMARY | 2025-08-19 10:27 | XMS_ITS | Encounter Summary ---
Author Organization [facility] Address [address] [place] [address] Phone Care Team Providers Care Burlap Roll Coverer Name Role Phone Felicia Loco MD Primary Care Provider [phone] Encounter Details Date Type Department Care Team (Late st Contact Info) Description 09/07/2011 Documentation EM Family Medicine [address] [place] [address] Family Medicine, Physician [address] [place], [place] [phone] Social History Tobacco Use Types Packs/Day Years [...] on filedocumented in this encounter Care Teams Burlap Roll Coverer Relationship Specialty Start Date End Date Felicia Loco MD [address] [place] [address] [place] [address] PCP - General Pediatrics 06/24/19 12/04/22 documented as of this encounter
--- OUTSIDE RECORDS SUMMARY | 2025-08-19 10:27 | XMS_ITS | Encounter Summary ---
Author Organization [facility] Address [address] [place] [address] Phone Care Team Providers Care Automated Weaver Name Role Phone Felicia Loco MD Primary Care Provider [phone] Encounter Details Date Type Department Care Team (Latest Contact Info) Description 03/07/[address] [facility] Social History Tobacco Use Types Packs/Day Years [...] of this encounter ED Notes * DOCUMENTS, [facility] - 03/07/2020 9:[address] [facility] EDM *LIVE* ED Physician Documentation Summary Report Patient: LEXX VELÁSQUEZ 19/M Service Date: 03/07/20 Account: [id number] : 2000 Service Time: 911 PCP: MAXI MR#: [id number] COVID-19 Visit/Exposure Info Visit Information Visit Type: [...] COVID-19 Course Differential Diagnosis/Testing Differential Diagnosis: Other ([place] testing) Diagnostics Testing Done: COVID-19 Lab Results COVID-19 Laboratory Tests Test 03/07/20 09:22 SARS-CoV-2 RNA (RT-PCR) Pending Plan Plan: Self-Isolation, Discharge Departure Diagnosis: [place] COVID-19 testing Disposition: HOME, SELF-CARE Condition: Good [...] on filedocumented in this encounter Care Teams Automated Weaver Relationship Specialty Start Date End Date Felicia Loco MD [address] [place] [address] RAJENDRA Marmolejo [address] PCP - General Pediatrics 06/24/19 12/04/22 documented as of this encounter
--- NOTE | 2025-08-19 10:48 | A.OFFPC_ITS ---
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 He has chronic sinus congestion, fullness and endorses air hunger. Worse at night and when laying down. Denies chest pressure . Intermittent wheezing. He does have a childhood history of asthma. Has not used an inhaler in years despite being prescribed in December. He has xray of the neck MPRESSION:Questioned fluid level in the region of the piriform sinuses and mild soft tissue edema. Soft tissue neck CT should be considered. CT scan was ordered but he did not schedule. Has ENT scheduled for October. GI: bloating, frequent stools, appetite loss and vomiting once a week. Stools are sometimes formed, sometimes constipation and sometimes diarrhea. Patient says he has a healthy diet. He drinks 5-6 beers 3 nights per week. He smokes marijuana and does edibles nightly. Intermittent acid reflux. He was referred to GI but did not follow through Abnormal CBC earlier this year, did not complete repeat. No abnormal weight loss, night sweats, LN ROS see HPI PHYSICAL EXAM: GENERAL: Tall, alert and oriented x 3. NAD EYES: EOMI. Anicteric. HENT: Moist mucous membranes. No scleral icterus. No cervical lymphadenopathy. LUNGS: scattered rhonci, wheeze CARDIOVASCULAR: Regular rate and rhythm. No murmur. No JVD. ABDOMEN: Soft, non-tender +bs EXTREMITIES: No edema. Non-tender. SKIN: No rashes or lesions. Warm. NEUROLOGIC: No focal neurological deficits. CN II-XII grossly intact PSYCHIATRIC: Cooperative. Appropriate mood and affect [facility] Medical History (Updated 06/16/25 @ 06:43 by Ailin Robertson MD) Routine physical examination Vomiting Acid reflux Alternating constipation and diarrhea Bloating Autism Asthma Bleeding hemorrhoids Surgical History History of hemorrhoidectomy (~03/28/24) History of dental surgery No pertinent past surgical history Family History Father Alcoholism Mother Skin cancer Other Substance abuse Social History (Updated 08/19/25 @ 11:06 by Annabel Fu CMA) Housing: House Alcohol intake: former Comment: hasnt drank in 6 months Patient Tobacco Use Status: Former Tobacco user Tobacco use type: Cigarette Cigarette Packs Per Day: 1 Cigarettes Per Day: 1 Years Smoked: 2 e-Cigarette/Vaping Use: Never Used Second Hand Smoke Exposure: Yes Substance Use Type: Marijuana service: No Current occupational status: employed 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 Current occupational exposures/hazards: No Cognitive needs: No Hearing needs: No Vision needs: No Questionnaire Thrive Questionnaire Date Thrive assessed: 01/01/25 I am a: Patient What is your living situation today?: I have a steady place to live Within the past 12 months, did the food you bought not last and you didn't have the money to get more?: Never true Within the past 12 months, did you worry whether your food would run out before you got money to buy more?: Never true Do you have trouble paying for medicines?: No Do you have trouble getting transportation to medical appointments?: No Do you have trouble paying your heating and electricity bill?: No Do you have trouble taking care of your child, family member or friend?: No Do you have trouble with day-to-day activities such as bathing, preparing meals, shopping, managing finances, etc.?: No Are you currently unemployed and looking for a job?: No Are you interested in more education?: No Currently or been in a relationship where the following occur: No concerns reported THRIVE Score: 0 AUDIT C Alcohol Use Questionnaire (AUDIT-C) 1. How often do you have a drink containing alcohol?: Never (hasnt drank in 6 month.) 3. How often do you have six or more drinks on one occasion?: Never Total Score: 0 DAIANA-7 AMB Questionnaire DAIANA-7 Date DAIANA - 7 assessed: 01/01/25 Source: Developed by Drs. Mukund Bustillo, Bridget Olvera, Johnathan Laird and colleagues, with an educational mary grace from [employer]. ACT Questionnaire In the past 4 weeks, how much of the time did your asthma keep you from getting as much done at work, school or at home?: A little of the time During the past 4 weeks, how often have you had shortness of breath?: More than once a day During the past 4 weeks, how often did your asthma symptoms wake you up at night or earlier than usual in the morning?: 2-3 nights a week During the past 4 weeks, how often have you had to use your rescue inhaler or nebulizer medication?: Not at all How would you rate your asthma control during the past 4 weeks?: Not controlled at all ACT Interpretation: Positive Score: 13 Physical exam (Primary Care) Vital Signs: Last Vital Signs Temp 98.3 F 08/19/25 10:53 Pulse 92 08/19/25 10:53 Resp 16 08/19/25 10:53 BP 104/84 08/19/25 10:53 Pulse Ox 98 08/19/25 10:53 Oxygen Delivery Method Room Air 08/19/25 10:53 BMI result Body Mass Index 26.9 Tobacco/Smoking Status: Tobacco use Status Tobacco use date assessed 08/19/25 08/19/25 10:55 Patient Tobacco Use Status Former Tobacco user 08/19/25 11:06 Tobacco use type Cigarette 08/19/25 11:06 e-Cigarette/Vaping Use Never Used 08/19/25 11:06 Thrive Assessment: Date of Thrive Assessment Date Thrive assessed 01/01/25 08/19/25 10:49 Currently or been in a relationship where the following occur: No concerns reported Coding Level of Care Code Add On Preventative Visit Only Diagnoses Shortness of breath R06.02 Mild intermittent asthma without complication J45.20 Asthma severity: mild Asthma persistence: intermittent Asthma complication type: uncomplicated Abnormal CBC R79.89 Sinus congestion R09.81 Additional Codes Asthma Control Questionnaire - ACT Interpretation: Positive ([id number]) Assessment & Plan Assessment & Plan (1) Shortness of breath: Code(s): R06.02 - Shortness of breath Category: Medical (2) Asthma: Code(s): J45.909 - Unspecified asthma, uncomplicated Category: Medical Qualifiers: Asthma severity: mild Asthma persistence: intermittent Asthma complication type: uncomplicated Qualified Code(s): J45.20 - Mild intermittent asthma, uncomplicated (3) Abnormal CBC: Code(s): R79.89 - Other specified abnormal findings of blood chemistry Category: Medical (4) Sinus congestion: Code(s): R09.81 - Nasal congestion Category: Medical Plan Shortness of breath needs PFT and pulmonary consult. discussed importance of following through. albutero prn CT sinus, neck. Could do allergy testing with pulm or could do separate consult but he does have upcoming ENT visit as well Start trial x one month xyzal. Mckeon for current sinus congestion. Repeat cbc Orders: Orders Complete Blood Count Auto Diff 08/19/25 R79.89 - Other specified abnormal findings of blood chemistry Liver Panel 08/19/25 R79.89 - Other specified abnormal findings of blood chemistry Basic Metabolic Panel 08/19/25 R79.89 - Other specified abnormal findings of blood chemistry CT sinus wo IV con 08/19/25 R06.02 - Shortness of breath, R09.81 - Nasal congestion PFT pulmonary function test 08/19/25 J45.20 - Mild intermittent asthma, uncomplicated, R06.02 - Shortness of breath Referrals Pulmonology Referral J45.20 - Mild intermittent asthma, uncomplicated, R06.02 - Shortness of breath Medications: New azithromycin For 250 mg dose pack: take 500 mg today (day 1), then 250 mg for 4 days (days 2-5) PO 6 tabs 0RF levocetirizine (Xyzal) 5 mg PO DAILY PRN 90 tabs 0RF allergy symptoms albuterol sulfate 90 mcg/actuation (Ventolin HFA) 2 puffs inhalation Q6H PRN 8.5 grams 3RF shortness of breath or wheezing
[2025-08-19 10:53] VITALS: BP 104/84; PULSE 92; RESP 16; TEMP 36.8; O2SAT 98; BMI 26.9
== END 2025-08-19 11:13 | disposition home or self-care (01) ==
LOC: HO.HMCFM 10:19
PROVIDERS: PCP Internal Medicine; Visit Provider Internal Medicine
DX: R06.02 Shortness of breath (principal); J45.20 Mild intermittent asthma, uncomplicated; R79.89 Other specified abnormal findings of blood chemistry; R09.81 Nasal congestion